=== PATIENT | female | born 1985 | race Asian ===

== ENCOUNTER 2017-05-25 23:09 | Inpatient (IN) | payer OTHER ==
[~2017-05-25] VITALS: Ht 149.9 cm; Wt 61.1 kg
[2017-05-25 23:44] LABS: MEAN CORPUSCULAR HEMOGLOBIN 26.8 pg (27.0-33.0); MEAN CORPUSCULAR HGB CONC 32.3 g/dl (32.0-36.5); MEAN CORPUSCULAR VOLUME 82.8 fl (80.0-96.0); PLATELET COUNT, AUTOMATED 308 10^3/uL (150-450); RED CELL DISTRIBUTION WIDTH 13.1 % (11.5-14.5)
[2017-05-26 00:05] LABS: CONTROL LINE HCG INT CTR LINE PRESENT
[2017-05-26 00:21] LABS: ALBUMIN 4.1 GM/DL (3.2-5.2); ALBUMIN/GLOBULIN RATIO 1.17 (1.00-1.93); ALKALINE PHOSPHATASE 72 U/L (45-117); ALT/SGPT 41 U/L (12-78); ANION GAP 13 MEQ/L (8-16); AST/SGOT 242 U/L (7-37); BILIRUBIN,DIRECT < 0.1 MG/DL (0.0-0.2); BILIRUBIN,TOTAL 0.3 MG/DL (0.2-1.0); BLOOD UREA NITROGEN 6 MG/DL (7-18); CALCIUM LEVEL 8.6 MG/DL (8.5-10.1); CARBON DIOXIDE LEVEL 22 MEQ/L (21-32); CHLORIDE LEVEL 106 MEQ/L (98-107); CREATININE FOR GFR 0.91 MG/DL (0.55-1.02); GLOMERULAR FILTRATION RATE > 60.0 (>60); GLUCOSE, FASTING 107 MG/DL (70-105); POTASSIUM SERUM 3.6 MEQ/L (3.5-5.1); SODIUM LEVEL 141 MEQ/L (136-145); TOTAL PROTEIN 7.6 GM/DL (6.4-8.2)
[2017-05-26 01:15] LABS: METHADONE URINE NEGATIVE (NEGATIVE)
[2017-05-26] MEDS ORDERED: MELA3TAB49 PO (01:28)
[2017-05-26] MEDS ORDERED: LEXA5TAB13 PO (01:28)
[2017-05-26] MEDS ORDERED: birth control pill PO (01:28)
[2017-05-26] MEDS ORDERED: traZODone 50 MG TAB PO PRN (02:15)
[2017-05-26] MEDS ORDERED: MAALOX 30 ML SUSP *UDC PO PRN (02:15)
[2017-05-26] MEDS ORDERED: ACETAMINOPHEN TAB 650MG DOSE (2X325MG) PO PRN (02:15)
[2017-05-26] MEDS ORDERED: MOM 30ML SUSPENSION UDC PO PRN (02:15)
[2017-05-26] MEDS ORDERED: NORA0.35 PO (02:28)
[2017-05-26] MEDS ORDERED: ESCI10TA2 PO (02:28)
[2017-05-26] MEDS ORDERED: IBUPOTC PO (02:29)
[2017-05-26 03:18] VITALS: BP 119/64
[2017-05-26 07:01] VITALS: BP 112/64
--- NOTE | 2017-05-26 09:41 | HPEPDOC ---
[facility] Medical History & Physical Date of Admission May 25, 2017 History and Physical PCP: Rainer chau ATTENDING: Dr. Jose Downs HPI: 32 yo F admitted to [facility] for unspecified depressive disorder, being medically examined today. No acute medical complaints today. Patient states her headaches are controlled. She usually has a headache if she does not sleep well. She takes ibuprofen and the headache resolves. Denies any fevers, chills, weakness, fatigue, LOPEZ, CP, SOB, cough, palpitations, abdominal pain, N/V/D or changes in bowel or bladder habits. PMHx: Anxiety Depression Headache Insomnia PSHX: Denies SOCHX: Resides in: [facility], moved here from the [facility] 3 months ago Marital Status: Kids: None Employment: Unemployed Tobacco use: Denies ETOH: 5 drinks per month Illicit Drugs: Denies IV Drug Use: Denies Tattoos done unprofessionally: Denies FAMHX: Mother: Alive, well Father: Unknown Siblings: None Children: None Unexpected deaths due to medical reasons: None. ROS: As noted in HPI, otherwise 11pt ROS of systems reviewed and remarkable only for LMP unknown, patient states she takes OCP. PE: GEN: 32 yo F, appears stated age. Well-nourished, well developed. No acute distress. Alert and oriented x 3. Pleasant, interactive. HEENT: Normocephalic, atraumatic. Pupils are equal, round, and reactive to light. Extraocular movements are intact. No nystagmus appreciated. Sclera are nonicteric. Conjunctiva without injection. Nose midline. Nasal turbinates without bogginess. EACs both patent BL. TMs both visualized and ramires with good cone of light, no bulging or erythema. No facial asymmetry. Moist mucous membranes. Dentition fair. Pharynx pink and moist, no cobblestoning. Neck supple , trachea midline. No lymphadenopathy or thyromegaly appreciated. CHEST: Regular rate and rhythm, +S1, +S2 LUNGS: Clear to auscultation bilaterally. No wheezes, rales, or rhonchi. Breathing appears symmetric and easy. Patient is speaking in full sentences. No accessory muscle use. ABD: Round, soft, non-tender, non-distended. +Bowel sounds throughout. No rebound or guarding. No costovertebral angle tenderness. EXT: Pulses 2+ bilaterally dorsalis pedis and radial. No lower extremity edema appreciated. SKIN: Musella, dry, warm. Capillary refill <2sec. No rashes. NEURO: Alert and oriented x 3. Cranial nerves III-XII are intact. No focal deficits appreciated. EKG: Pending. A&P: 32 yo F admitted to [facility] for unspecified depressive disorder 1. Psych. Plan per Psychiatry. Obtain baseline EKG to assure the safety of psychiatric medications as they can prolong the QT interval. 2. Continue OCP. 3. Elevated LFT. Recheck CMP in a.m. Add hepatitis profile. 4. Follow up with PCP on discharge. 5. Staff member Rosa M AMADO present throughout exam. Vital Signs Vital Signs Date Time Temp Pulse Resp B/P (MAP) Pulse Ox O2 Delivery O2 Flow Rate FiO2 05/26/17 07:01 98.2 94 14 112/64 (80) 05/26/17 02:42 100 Room Air Laboratory Data Labs 24H Laboratory Tests 2 05/25/17 23:31: Nucleated Red Blood Cells % (auto) 0.0, Anion Gap 13, Glomerular Filtration Rate > 60.0, Calcium Level 8.6, Aspartate Amino Transf (AST/SGOT) 242H, Alanine Aminotransferase (ALT/SGPT) 41, Alkaline Phosphatase 72, Total Bilirubin 0.3, Direct Bilirubin < 0.1, Total Protein 7.6, Albumin 4.1, Albumin/Globulin Ratio 1.17, Thyroid Stimulating Hormone (TSH) 2.210, Human Chorionic Gonadotropin, Qual NEGATIVE, Salicylates Level < 1.7L, Acetaminophen Level < 2.0L, Ethyl Alcohol Level 0.042H 05/26/17 00:49: Urine Amphetamines Screen NEGATIVE, Urine Benzodiazepines Screen NEGATIVE, Urine Opiates Screen NEGATIVE, Urine Methadone Screen NEGATIVE, Urine Barbiturates Screen NEGATIVE, Urine Phencyclidine Screen NEGATIVE, Urine Cocaine Metabolite Screen NEGATIVE, Urine Cannabinoids Screen NEGATIVE CBC/BMP Laboratory Tests 05/25/17 23:31 Red Blood Count 5.12, Mean Corpuscular Volume 82.8, Mean Corpuscular Hemoglobin 26.8 L, Mean Corpuscular Hemoglobin Concent 32.3, Red Cell Distribution Width 13.1 Home Medications Scheduled (Melatonin) 3 Mg Tab, 3 MG PO QHS Escitalopram Oxalate (Escitalopram Oxalate) 10 Mg Tab, 10 MG PO DAILY Norethindrone (Mariella-Be) 0.35 Mg Tab, 0.35 MG PO DAILY Scheduled PRN Ibuprofen (Ibuprofen) 200 Mg Tab, 400 MG PO Q6H PRN for HEADACHE OR PAIN Allergies Coded Allergies: No Known Allergies (Unverified , 04/10/17) Mariana Abbott May 26, 2017 09:41
[2017-05-26] MEDS: ESCITALOPRAM OXALATE 5MG TABLET (LEXAPRO) PO SCH (10:47)
[2017-05-26] MEDS: NORETHINDRONE PO SCH (15:29)
--- NOTE | 2017-05-26 16:25 | MHHPEPDOC ---
[facility] History & Physical History and Physical DATE OF ADMISSION: May 26, 2017 at 02:13 LEGAL STATUS AT ADMISSION: 9.39. CHIEF COMPLAINT: SI HISTORY OF PRESENT ILLNESS: Patient is a 32-year-old female, no PMH, PPH of depression, no prior psychiatric hospitalization, no prior SA, presents for SI, brought by police. Patient reports depression, poor sleep. Had SI without intent and plan of OD, denies current SI intent and plan. Denies manic symptoms, denies AVH, denies flashbacks and nightmares. 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 She states moving to the and living here was not what she expected. She feels bored, unable to work because she has no drivers license, does not like the cold, feels isolated. Sees psychiatrist at [place] at [place], takes lexapro 5 mg (took for 2 weeks and then stopped taking it 2 weeks ago), melatonin 3 mg qhs. Patient has not had depressive episode before moving here. States her depression worsened when she self discontinued the lexapro 2 weeks ago, as she forgot to bring the pills with her when she flew to [place]. 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 Denies any significant physical and sexual abuse. SUBSTANCE ABUSE HISTORY: denies drugs, denies ETOH abuse, quit cigs 3 months ago PAST MEDICAL/SURGICAL HISTORY: denies VITAL SIGNS: Please see below. MENTAL STATUS EXAMINATION: General appearance: casually groomed Behavior: cooperative, related Speech: normal RRVT Thought processes: linear Thought content: appropriate to conversation Judgment: fair Insight: fair Orientation: aaox3 Mood: "depressed" Affect: neutral, reactive DIAGNOSES: 1. adjustment disorder 2. r/o MDD ASSESSMENT: Patient is depressed but not currently suicidal. She has no depressive hx, and her mood is largely situational, and from her not taking her lexapro. PROBLEM LIST: 1. depression 2. poor sleep INITIAL TREATMENT PLAN: 1. Patient was admitted on a 9. 2. Complete history was obtained. 3. With patients permission, family will be contacted and database will be expanded. 4. Patients medication regimen will be reviewed and changed accordingly. 5. Patient will be provided with protected environment. 6. Patient will be treated with individual, group, and milieu therapies. 7. Patient will receive supportive psych-education. 8. Discharge planning will commence immediately. 9. Outpatient follow-up treatment will be strongly recommended. 10. The initial treatment plan will focus initially on: * Depression. * Risk for suicide. * Substance abuse. - Reinitiate lexapro 5 mg daily for mood - PRN: trazodone, tylenol, mom, [place] ESTIMATED LENGTH OF STAY: 2 DAYS. TIME SPENT COUNSELING AND COORDINATING INITIAL CARE: 20 minutes. Vital Signs Vital Signs Date Time Temp Pulse Resp B/P (MAP) Pulse Ox O2 Delivery O2 Flow Rate FiO2 05/26/17 11:33 Room Air 05/26/17 07:01 98.2 94 14 112/64 (80) 05/26/17 02:42 100 Laboratory Data 24H Labs Laboratory Tests 2 05/25/17 23:31: Nucleated Red Blood Cells % (auto) 0.0, Anion Gap 13, Glomerular Filtration Rate > 60.0, Calcium Level 8.6, Aspartate Amino Transf (AST/SGOT) 242H, Alanine Aminotransferase (ALT/SGPT) 41, Alkaline Phosphatase 72, Total Bilirubin 0.3, Direct Bilirubin < 0.1, Total Protein 7.6, Albumin 4.1, Albumin/Globulin Ratio 1.17, Thyroid Stimulating Hormone (TSH) 2.210, Human Chorionic Gonadotropin, Qual NEGATIVE, Salicylates Level < 1.7L, Acetaminophen Level < 2.0L, Ethyl Alcohol Level 0.042H 05/26/17 00:49: Urine Amphetamines Screen NEGATIVE, Urine Benzodiazepines Screen NEGATIVE, Urine Opiates Screen NEGATIVE, Urine Methadone Screen NEGATIVE, Urine Barbiturates Screen NEGATIVE, Urine Phencyclidine Screen NEGATIVE, Urine Cocaine Metabolite Screen NEGATIVE, Urine Cannabinoids Screen NEGATIVE CBC/BMP Laboratory Tests 05/25/17 23:31 Red Blood Count 5.12, Mean Corpuscular Volume 82.8, Mean Corpuscular Hemoglobin 26.8 L, Mean Corpuscular Hemoglobin Concent 32.3, Red Cell Distribution Width 13.1 Medications Scheduled (Melatonin) 3 Mg Tab, 3 MG PO QHS, (Reported) Escitalopram Oxalate (Escitalopram Oxalate) 10 Mg Tab, 10 MG PO DAILY, (Reported ) Norethindrone (Mariella-Be) 0.35 Mg Tab, 0.35 MG PO DAILY, (Reported) Scheduled PRN Ibuprofen (Ibuprofen) 200 Mg Tab, 400 MG PO Q6H PRN for HEADACHE OR PAIN, ( Reported) Allergies Coded Allergies: No Known Allergies (Unverified , 04/10/17) BAILEE BARKLEY MD May 26, 2017 16:25
[2017-05-26 18:00] VITALS: BP 111/67
--- NOTE | 2017-05-26 19:18 | ECGEPIP ---
Stationary ECG Study [facility] Test Date: 2017-05-26 Pat Name: DANIEL GREGORY Department: Room: [place] [address] Gender: F Electrolog Operator: JULIAN : 1985 Requested By: Mariana Abbott Order Number: [id number] Reading MD: Jose Downs Measurements Intervals [place] Rate: 85 P: 63 [place]: 172 QRS: 64 QRSD: 86 T: 52 QT: 376 QTc: 448 Interpretive Statements SINUS RHYTHM Comparison tracing not on file Electronically Signed On 05-26-2017 19:18:33 EST by Jose Downs
[2017-05-27 06:47] VITALS: BP 110/62
[2017-05-27] MEDS: NORETHINDRONE PO SCH (09:00)
[2017-05-27] MEDS ORDERED: NORETHINDRONE PO SCH ×2 (09:00→13:00)
[2017-05-27 09:01] LABS: ALBUMIN 4.2 GM/DL (3.2-5.2); ALBUMIN/GLOBULIN RATIO 1.17 (1.00-1.93); ALKALINE PHOSPHATASE 71 U/L (45-117); ALT/SGPT 54 U/L (12-78); ANION GAP 10 MEQ/L (8-16); AST/SGOT 242 U/L (7-37); BILIRUBIN,TOTAL 0.6 MG/DL (0.2-1.0); BLOOD UREA NITROGEN 11 MG/DL (7-18); CALCIUM LEVEL 8.9 MG/DL (8.5-10.1); CARBON DIOXIDE LEVEL 27 MEQ/L (21-32); CHLORIDE LEVEL 104 MEQ/L (98-107); CREATININE FOR GFR 0.89 MG/DL (0.55-1.02); GLOMERULAR FILTRATION RATE > 60.0 (>60); GLUCOSE, FASTING 96 MG/DL (70-105); SODIUM LEVEL 141 MEQ/L (136-145); TOTAL PROTEIN 7.8 GM/DL (6.4-8.2)
[2017-05-27] MEDS: ESCITALOPRAM OXALATE 5MG TABLET (LEXAPRO) PO SCH (09:02)
[2017-05-27] MEDS ORDERED: ESCI10TA2 PO (09:38)
[2017-05-27] MEDS ORDERED: TRAZO50TA PO ×2 (09:38→11:02)
[2017-05-27] MEDS ORDERED: LEXA5TAB13 PO ×2 (09:43→11:02)
--- NOTE | 2017-05-27 09:46 | MHDSPDOC ---
[facility] Discharge Summary Discharge Summary DATE OF ADMISSION: May 26, 2017 at 02:13 DATE OF DISCHARGE: 05/27/17 DISCHARGE DIAGNOSES: 1. Adjustment disorder, r/o MDD REASON FOR ADMISSION: 32-year-old female, no PMH, PPH of depression, no prior psychiatric hospitalization, no prior SA, presents for SI, brought by police. Patient reports depression, poor sleep. Had SI without intent and plan of OD, denies current SI intent and plan. Denies manic symptoms, denies AVH, denies flashbacks and nightmares. Patient moved from the 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 She states moving to the and living here was not what she expected. She feels bored, unable to work because she has no drivers license, does not like the cold, feels isolated. Sees psychiatrist at [place] at [place], takes lexapro 5 mg (took for 2 weeks and then stopped taking it 2 weeks ago), melatonin 3 mg qhs. Patient has not had depressive episode before moving here. States her depression worsened when she self discontinued the lexapro 2 weeks ago, as she forgot to bring the pills with her when she flew to [place]. CONSULTANTS INVOLVED: na TREATMENT AND PROGRESS ON THE UNIT : Patient was calm and feeling better by the evening of the first day on the floor. She was able to describe her life situation and the context in which she became depressed. She did not endorse SI intent and plan an was future oriented. She was put back on lexapro, at 5 mg daily, as she has been off of the medication for several weeks. She was given trazodone 50 mg qhs PRN for sleep. DISCHARGE ASSESSMENT: Patient is calm, euthymic, future-oriented, motivated to continue outpt treatment MENTAL STATUS EXAMINATION ON DISCHARGE: General appearance: casually groomed Behavior: cooperative, related Speech: normal RRVT Thought processes: linear Thought content: appropriate to conversation Judgment: fair Insight: fair Orientation: aaox3 Mood: "better" Affect: euthymic, reactive Plan: - Reinitiate lexapro 5 mg daily for mood - Trazodone 50 mg qhs PRN for sleep Time spent coordinating dc: 20 minutes Vital Signs/I&Os Vital Signs Date Time Temp Pulse Resp B/P (MAP) Pulse Ox O2 Delivery O2 Flow Rate FiO2 12/22/17 06:47 98.4 59 16 110/62 (78) 05/26/17 11:33 Room Air 05/26/17 02:42 100 Laboratory Data Labs 24H Laboratory Tests 2 05/27/17 08:05: Anion Gap 10, Glomerular Filtration Rate > 60.0, Blood Urea Nitrogen 11#, Creatinine 0.89, Sodium Level 141, Potassium Level 4.0, Chloride Level 104, Carbon Dioxide Level 27, Calcium Level 8.9, Aspartate Amino Transf (AST/SGOT) 242H, Alanine Aminotransferase (ALT/SGPT) 54, Alkaline Phosphatase 71, Total Bilirubin 0.6#, Total Protein 7.8, Albumin 4.2, Albumin/Globulin Ratio 1.17 CBC/BMP Laboratory Tests 05/27/17 08:05 Calcium Level 8.9, Aspartate Amino Transf (AST/SGOT) 242 H, Alanine Aminotransferase (ALT/SGPT) 54, Alkaline Phosphatase 71, Total Bilirubin 0.6 #, Total Protein 7.8, Albumin 4.2 Medications Scheduled (Melatonin) 3 Mg Tab, 3 MG PO QHS, (Reported) Norethindrone (Amriella-Be) 0.35 Mg Tab, 0.35 MG PO DAILY, (Reported) Scheduled PRN Escitalopram Oxalate (Lexapro) 5 Mg Tab, 5 MG PO DAILY PRN for DEPRESSION for 7 Days, #7 Ibuprofen (Ibuprofen) 200 Mg Tab, 400 MG PO Q6H PRN for HEADACHE OR PAIN, ( Reported) Trazodone HCl (Trazodone HCl) 50 Mg Tab, 50 MG PO QHSP PRN for INSOMNIA, #7 Allergies Coded Allergies: No Known Allergies (Unverified , 04/10/17) BAILEE BARKLEY MD May 27, 2017 09:46
[2017-05-27] MEDS ORDERED: ENTER DRUG NAME HERE (PATIENT'S OWN MED) PO SCH (13:00)
== END 2017-05-27 13:30 | disposition home or self-care (01) | DRG 882 ==
LOC: EDBD 23:09 → M ED 23:09 → M ED INP 05-26 02:13 → M PSY 05-26 02:51
PROVIDERS: ADMIT Psychiatry & Neurology Psychiatry; ATTEND Psychiatry & Neurology Psychiatry
DX: F43.20 Adjustment disorder, unspecified (principal); R45.851 Suicidal ideations; R94.5 Abnormal results of liver function studies

== ENCOUNTER 2018-08-08 13:54 | Emergency (ER) | payer OTHER ==
[~2018-08-08] VITALS: Ht 149.9 cm; Wt 59.1 kg
[~2018-08-08 13:54] MED LIST: ESCI10TA2 PO; IBUPOTC PO; LEXA5TAB13 PO; MELA3TAB49 PO; NORA0.35 PO; TRAZO50TA PO; birth control pill PO
[2018-08-08] MEDS ORDERED: KETOROLAC TROMETHAMINE 10 MG TAB PO ONE (16:00)
--- NOTE | 2018-08-08 16:15 | REP ---
PELVIC ULTRASOUND: Real-time sonographic evaluation of the pelvis performed utilizing transabdominal technique. The bladder measures 7.9 x 5.9 x 9.7 cm. Uterus measures 8.3 x 3.1 x 4.4 cm. Endometrial thickness 4.4 mm with no endometrial fluid collection. Ovaries are normal in size and echotexture, right ovary measuring 2.7 x 1.3 x 1.3 cm and left ovary 3.1 x 2.3 x 1.9 cm. There is no adnexal mass or free fluid. Blood flow is seen in each ovary with duplex Doppler evaluation, with no torsion. IMPRESSION: Negative pelvic ultrasound. Electronically Signed by Keith Mahan MD 08/09/2018 01:52 P
[2018-08-08 16:38] VITALS: BP 108/58
[2018-08-08] MEDS ORDERED: KETO10TAB PO (16:43)
== END 2018-08-08 16:47 | disposition home or self-care (01) ==
LOC: M ED 13:54
DX: R10.9 Unspecified abdominal pain (principal); E28.2 Polycystic ovarian syndrome; F41.9 Anxiety disorder, unspecified; F32.9 Major depressive disorder, single episode, unspecified